=== PATIENT | female | born 1980 | race Caucasian/White ===

== ENCOUNTER 2016-12-09 00:16 | Emergency (ER) | payer SELFPAY ==
[~2016-12-09] VITALS: Ht 170.2 cm; Wt 63.5 kg
[2016-12-09] MEDS ORDERED: LORazepam 2 MG/ML VIAL IM ONE (01:00)
[2016-12-09 01:56] VITALS: BP 135/80
== END 2016-12-09 01:58 | disposition home or self-care (01) ==
LOC: EMS 00:19
DX: R07.89 Other chest pain (principal); F41.9 Anxiety disorder, unspecified
CPT/HCPCS: 96372; 99283; J2060

== ENCOUNTER 2018-06-11 19:14 | Emergency (ER) | payer MEDICAID ==
[~2018-06-11] VITALS: Ht 170.2 cm; Wt 75.0 kg
[2018-06-11 19:30] VITALS: BP 147/92
== END 2018-06-11 21:49 | disposition home or self-care (01) ==
LOC: EMS 19:15
DX: F41.9 Anxiety disorder, unspecified (principal)

== ENCOUNTER 2018-06-19 18:31 | Emergency (ER) | payer MEDICAID ==
[~2018-06-19] VITALS: Ht 170.2 cm; Wt 72.7 kg
[2018-06-19 21:53] VITALS: BP 141/78
== END 2018-06-19 22:07 | disposition home or self-care (01) ==
LOC: EMS 18:34
DX: F41.9 Anxiety disorder, unspecified (principal); R53.83 Other fatigue; M79.10 Myalgia, unspecified site